=== PATIENT | male | born 1955 | race Caucasian/White ===

== ENCOUNTER 2016-11-21 06:49 | Inpatient (IN) | payer BC ==
[2016-11-20 16:13] LABS: HEMATOCRIT 38.9 % (40.0-51.0); HEMOGLOBIN 13.2 g/dL (13.6-17.8)
[2016-11-20 16:25] LABS: BUN (BLOOD UREA NITROGEN) 20 MG/DL (6-23); CALCIUM, SERUM 8.8 MG/DL (8.5-10.4); CHLORIDE, SERUM 101 MMOL/L (96-112); CREATININE 0.89 MG/DL (0.70-1.30); GFR AFRICAN AMERICAN 105 ML/MIN (>=60); GFR NON AFRICAN AMERICAN 91 ML/MIN (>=60); POTASSIUM, SERUM 4.2 MMOL/L (3.5-5.3); SODIUM, SERUM 135 MMOL/L (135-148)
[2016-11-20 16:32] LABS: CO2 (CARBON DIOXIDE) 26 MMOL/L (24-34); GLUCOSE, SERUM 353 MG/DL (60-99)
--- NOTE | ~2016-11-21 | OP ---
Record Of Operation [facility] [address] [place]. [address] NAME: RANYD MOTTA : 51 STATUS : ADM IN [facility]#: [id number] AGE: 61 ADM/REG DATE : 11/21/16 MR#: [id number] REPORT SERV DATE: 11/21/16 DICTATED BY: TESSY GARCIA DATE: 11/21/16 REPORT STATUS : Draft TRANSCRIBED BY: MODL DATE: 11/21/16 DATE OF PROCEDURE: 11/21/2016 PREOPERATIVE DIAGNOSES: 1. Bilateral internal carotid artery stenosis. 2. Morbid obesity. 3. 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 POSTOPERATIVE DIAGNOSES: 1. Bilateral internal carotid artery stenosis. 2. Morbid obesity. 3. 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 PROCEDURE: 1. Ultrasound-guided percutaneous access, right common femoral artery. 2. Arteriogram. 3. Selective catheterization of bilateral common carotid arteries with bilateral carotid arteriogram. 4. Placement of right internal carotid artery stent with distal embolic protection (10 mm tapered to 7 mm x 30 mm Protege RX stent). SURGEON: Tessy Garcia M.D. CYBER FORENSICS ANALYST: John. ANESTHESIA: Local with MAC. ESTIMATED BLOOD LOSS: Minimal. CONTRAST: 91 mL. COMPLICATIONS: None. INDICATION: Mr. Motta is a very pleasant, 61-year-old man who is quite obese. On recent CT angiogram, he was found to have high-grade carotid stenosis bilaterally, right worse than left. I also noted on CT angiogram with a very posterior course of the carotid arteries nearly touching each other posteriorly. Due to his obesity and the anatomic position of his carotid arteries, he is not felt to be a good surgical candidate. As a result, he is recommended for arteriogram and stent placement if indicated. DETAILS OF PROCEDURE: After informed consent was obtained, the patient was brought to the endovascular suite and placed in supine position. After administration of IV sedation, he was prepped and draped in usual sterile fashion. A time-out was performed. I commenced the procedure with ultrasound-guided percutaneous access of the right common femoral artery. Record Of Operation [facility] [address] [place]. [address] NAME: RANDY MOTTA : 51 STATUS : ADM IN PAT#: [id number] AGE: 61 ADM/REG DATE : 11/21/16 MR#: [id number] REPORT SERV DATE: 11/21/16 DICTATED BY: TESSY GARCIA DATE: 11/21/16 REPORT STATUS : Draft TRANSCRIBED BY: AUREA DATE: 11/21/16 This was done after anesthetizing the right groin with local anesthetic. Permanent image of the artery documenting patency was saved and stored in the patient's chart. I accessed with micropuncture needle with some difficulty due to the patient's obesity. However, I was able to get a micropuncture wire intra-arterial confirmed under fluoroscopy. I then placed a micropuncture sheath. I then upsized to a 5-[place] sheath over an Amplatz wire. I advanced an Amplatz wire and [place] flush catheter into the aortic arch. Arch aortogram was performed which showed a patent nonaneurysmal aortic arch. This is a type-1 arch. There was a shared origin of the innominate and left common carotid artery with a bovine-like arch. The origins of the arch vessels were widely patent with no stenosis. After that, we systemically heparinized. I then used a Glidewire and a jackie-2 to engage the innominate and the right common carotid artery. Right carotid arteriogram was performed, which showed a widely patent common carotid artery. The bifurcation was patent. The external carotid is widely patent with no stenosis. The internal carotid has a focal high-grade stenosis at the origin, 80% or greater. Distal internal carotid artery was widely patent. After that, I carefully advanced the Amplatz wire into the external carotid artery. I exchanged the 5- [place] sheath for a 6 x 90 sheath up into the common carotid artery. I then placed a 6 medium Angioguard filter into the distal internal carotid artery. I then placed a 10 mm tapered to 7 mm x 30 mm in length Protege RX stent in the internal carotid artery extending down to the distal common carotid artery. Repeat contrast injection shows perfect placement of the stent. There was no residual stenosis. No post dilatation was performed. The patient did suffer bradycardia at the deployment of the stent, though recovered with atropine and remained conversant throughout. After that, we retrieved the filter. There was no debris within the filter. I replaced the wire and pulled the sheath back into the aortic arch. I then selected the left common carotid artery with a jackie-2 and a Glidewire. I advanced the catheter up into the common carotid artery and performed left carotid arteriogram. Again, the common carotid artery was widely patent with no stenosis. The bifurcation was patent. There was calcific plaque at the internal carotid artery, but there was only about a 60% stenosis. Distal internal carotid artery was patent. The external carotid artery was patent with no stenosis. Satisfied with that, wires and catheters were removed. I replaced the [place] wire and pulled the sheath back into the right external iliac artery and performed right common femoral artery arteriogram, which shows a puncture site in the distal common femoral artery. As a result, a ProGlide closure device was deployed for hemostasis. The patient tolerated the procedure well with no complications. I was present and participated this entire case as dictated. He remained neurologically intact throughout the procedure. MARQUIS/AUREA Tessy Garcia M.D. / [id number] CC: Tessy Garcia M.D. Record Of Operation [address] [address] NAME: RANDY MOTTA : 51 STATUS : ADM IN [facility]#: [id number] AGE: 61 ADM/REG DATE : 11/21/16 MR#: [id number] REPORT SERV DATE: 11/21/16 DICTATED BY: TESSY GARCIA DATE: 11/21/16 REPORT STATUS : Draft TRANSCRIBED BY: AUREA DATE: 11/21/16 Lucita Joyce Jr., M.D.
[~2016-11-21 06:49] MED LIST: AMARYL1 MG PO; AMARYL2 PO; ASAB PO; CIP5 PO; FISH-EPA1000 MG PO; FLAG500TAB PO; FLOMAX4 PO; GARLIC; GARLIC PO; GARLIFE PO; GLUCOPHAGE1000 MG PO; LEVEMIR SC; LOP25 PO; MAGNESIUM PO; MULTIVITAMI1 PO; NOVOLOG SC; PERCOCET1 TA4 PO; PRILO PO; PRIN10 PO; PRIN5 PO; VITE PO; WELL100 PO; ZOCOR40 PO
[2016-11-22 03:53] LABS: BUN (BLOOD UREA NITROGEN) 23 MG/DL (6-23); CALCIUM, SERUM 8.5 MG/DL (8.5-10.4); CHLORIDE, SERUM 102 MMOL/L (96-112); CO2 (CARBON DIOXIDE) 27 MMOL/L (24-34); CREATININE 1.06 MG/DL (0.70-1.30); GFR AFRICAN AMERICAN 86 ML/MIN (>=60); GFR NON AFRICAN AMERICAN 74 ML/MIN (>=60); POTASSIUM, SERUM 4.4 MMOL/L (3.5-5.3); SODIUM, SERUM 132 MMOL/L (135-148)
[2016-11-22 03:54] LABS: GLUCOSE, SERUM 246 MG/DL (60-99)
[2016-11-22] MEDS ORDERED: PLAVIX PO (14:31)
== END 2016-11-22 16:00 | disposition home or self-care (01) | DRG 35 ==
LOC: SDC 06:49 → CVICU 11:18
PROVIDERS: Surgery
PROC: 037K3DZ Dilation of Right Internal Carotid Artery with Intraluminal Device, Percutaneous Approach (ICD-10-PCS; principal; 2016-11-21 10:00)
DX: I65.23 Occlusion and stenosis of bilateral carotid arteries (principal); Z68.43 Body mass index [BMI] 50.0-59.9, adult; I10 Essential (primary) hypertension; E66.01 Morbid (severe) obesity due to excess calories; Q27.8 Other specified congenital malformations of peripheral vascular system; E78.00 Pure hypercholesterolemia, unspecified; G47.33 Obstructive sleep apnea (adult) (pediatric); E11.9 Type 2 diabetes mellitus without complications
CPT/HCPCS: 36222; 37215; 76937; 80048; 82962; 85014; 85018; 93005; A9270-GY; C1760; C1769; C1876; C1884; C1894; J0461; J0690; J2370; J2405; J3010; Q9967